=== PATIENT | female | born 1985 | race Caucasian/White ===

== ENCOUNTER 2017-08-19 20:51 | Emergency (ER) | payer SELFPAY ==
[2017-08-19 22:16] LABS: BASOPHILS 0.2 % (0-2); EOSINOPHILS 3.7 % (0-7); HEMATOCRIT 40.2 % (36.0-48.0); HEMOGLOBIN 13.3 g/dL (12-16); IMMATURE GRANULOCYTES 0.3 % (0-5); LYMPHOCYTES 19.9 % (15-50); MCH 30.2 pg (26.0-34.0); MCHC 33.1 g/dL (31.0-37.0); MCV 91.2 fL (80.0-100.0); MEAN PLATELET VOLUME 9.5 fL (7.4-10.4); MONOCYTES 6.1 % (2-11); NEUTROPHILS 69.8 % (40-80); PLATELET COUNT 370 10x3/uL (130-400); RBC 4.41 10x6/uL (4.00-5.40); RDW 13.9 % (11.5-14.5); WBC 15.5 10x3/uL (4.8-10.8)
[2017-08-19 22:18] LABS: HCG SERUM POSITIVE (NEGATIVE)
[2017-08-19 23:17] LABS: ALBUMIN 3.4 g/dL (3.4-5.0); ALKALINE PHOSPHATASE 102 U/L (46-116); ALT (SGPT) 42 U/L (10-68); BILIRUBIN - TOTAL 0.14 mg/dL (0.2-1.3); CALC OSMOLALITY 274 mosm/kg (275-300); CALCIUM 9.2 mg/dL (8.5-10.1); CARBON DIOXIDE 25.3 mmol/L (21.0-32.0); CHLORIDE - SERUM 102 mmol/L (98-107); CREATININE - SERUM 0.7 mg/dL (0.6-1.3); GLUCOSE 93 mg/dL (74-106); POTASSIUM - SERUM 3.7 mmol/L (3.5-5.1); PROTEIN - SERUM 7.4 g/dL (6.4-8.2); SODIUM 138 mmol/L (136-145); UREA NITROGEN 11 mg/dL (7-18); eGFR NON AFRICAN AMERICAN > 90 mL/min (90-120)
[2017-08-19 23:27] LABS: CREATINE KINASE 66 UL (21-215); MAGNESIUM - SERUM 2.1 mg/dL (1.8-2.4); PRO BNP 136 pg/mL (0-125)
== END 2017-08-20 00:43 | disposition home or self-care (01) ==
LOC: D.ER 20:51
PROVIDERS: Emergency Medicine
DX: O26.851 Spotting complicating pregnancy, first trimester (principal); Z3A.08 8 weeks gestation of pregnancy; J45.909 Unspecified asthma, uncomplicated; F17.200 Nicotine dependence, unspecified, uncomplicated

== ENCOUNTER 2017-10-11 19:23 | Emergency (ER) | payer SELFPAY ==
[2017-10-11 19:59] LABS: APPEARANCE CLEAR (CLEAR); BILIRUBIN NEGATIVE (NEGATIVE); COLOR YELLOW (YELLOW); GLUCOSE NEGATIVE (NEGATIVE); KETONE NEGATIVE (NEGATIVE); NITRITE NEGATIVE (NEGATIVE); PROTEIN NEGATIVE (NEGATIVE); SPECIFIC GRAVITY 1.015 (1.005-1.020); UROBILINOGEN NORMAL (NORMAL)
== END 2017-10-11 20:55 | disposition home or self-care (01) ==
LOC: D.ER 19:23
PROVIDERS: Family Medicine
DX: O26.892 Other specified pregnancy related conditions, second trimester (principal); Z3A.15 15 weeks gestation of pregnancy; R35.0 Frequency of micturition

== ENCOUNTER 2018-11-16 16:17 | Emergency (ER) | payer MEDICAID ==
[~2018-11-16] VITALS: Ht 160 cm; Wt 86.4 kg
[2018-11-16 16:21] VITALS: Ht 160 cm; Wt 86.4 kg
[2018-11-16] MEDS ORDERED: MINIPRESS1 MG PO ×2 (19:20→19:24)
[2018-11-16] MEDS ORDERED: EFFEXOR37.5 MG PO ×2 (19:21→19:24)
[2018-11-16] MEDS ORDERED: ATIVAN1 MG PO (19:24)
[2018-11-16 19:39] VITALS: BP 113/65
== END 2018-11-16 19:39 | disposition home or self-care (01) ==
LOC: D.ER 16:17
DX: F41.9 Anxiety disorder, unspecified (principal)

== ENCOUNTER 2020-02-01 23:19 | Emergency (ER) | payer SELFPAY ==
[~2020-02-01] VITALS: Ht 160 cm; Wt 88.6 kg
[~2020-02-01 23:19] MED LIST: ATIVAN1 MG PO; EFFEXOR37.5 MG PO; KEFLEX500 MG PO; MINIPRESS1 MG PO; PROPRANOLOL HCL20 MG PO
[2020-02-01 23:29] VITALS: BP 141/86; Ht 160 cm; Wt 88.6 kg
[2020-02-01 23:48] LABS: BILIRUBIN NEGATIVE (NEGATIVE); KETONE NEGATIVE (NEGATIVE); NITRITE NEGATIVE (NEGATIVE); UROBILINOGEN NORMAL (NORMAL)
[2020-02-02] MEDS ORDERED: ATIVAN1 MG PO (00:23)
[2020-02-02] MEDS ORDERED: DIFLUCAN150 MG PO (00:23)
== END 2020-02-02 03:01 | disposition home or self-care (01) ==
LOC: D.ER 23:19
PROVIDERS: Family Medicine
DX: B37.3 Candidiasis of vulva and vagina (principal); J45.909 Unspecified asthma, uncomplicated; R39.15 Urgency of urination

== ENCOUNTER 2020-02-08 23:23 | Emergency (ER) | payer SELFPAY ==
[~2020-02-08] VITALS: Ht 160 cm; Wt 88.6 kg
[~2020-02-08 23:23] MED LIST changes: +DIFLUCAN150 MG PO
[2020-02-08 23:32] VITALS: Ht 160 cm; Wt 88.6 kg
[2020-02-09 00:55] LABS: BACTERIA NONE SEEN /HPF (NONE SEEN); EPITHELIAL CELLS NSEEN /hpf (0-5); WHITE CELLS - URINE 0-5 HPF (0-4)
[2020-02-09 00:56] LABS: URIC ACID CRYSTALS 0-5 \\hpf (NONE SEEN)
[2020-02-09] MEDS ORDERED: TORADOL10 MG PO (01:01)
[2020-02-09] MEDS ORDERED: METHOCARBAMOL500 MG PO (01:01)
[2020-02-09 01:44] VITALS: BP 110/88
== END 2020-02-09 01:44 | disposition home or self-care (01) ==
LOC: D.ER 23:23
PROVIDERS: Family Medicine
DX: S30.0XXA Contusion of lower back and pelvis, initial encounter (principal); J45.909 Unspecified asthma, uncomplicated; M54.5 Low back pain; W10.9XXA Fall (on) (from) unspecified stairs and steps, initial encounter; Y93.9 Activity, unspecified; Y92.9 Unspecified place or not applicable

== ENCOUNTER 2020-08-02 21:09 | Emergency (ER) | payer OTHER ==
[~2020-08-02] VITALS: Ht 160 cm; Wt 92.5 kg
[~2020-08-02 21:09] MED LIST changes: +METHOCARBAMOL500 MG PO; +TORADOL10 MG PO; +VISTARIL50 MG PO
[2020-08-02 21:33] VITALS: Ht 160 cm; Wt 92.5 kg
[2020-08-02] MEDS ORDERED: MINIPRESS1 MG (21:35)
[2020-08-02 22:18] LABS: HCG URINE NEGATIVE (NEGATIVE)
[2020-08-02 22:19] LABS: BILIRUBIN NEGATIVE (NEGATIVE); KETONE NEGATIVE (NEGATIVE); NITRITE NEGATIVE (NEGATIVE); UROBILINOGEN NORMAL mg/dL (< 2)
[2020-08-02] MEDS ORDERED: ATIVAN1 MG PO (23:34)
[2020-08-02 23:53] VITALS: BP 123/85
== END 2020-08-02 23:54 | disposition home or self-care (01) ==
LOC: D.ER 21:09
PROVIDERS: Emergency Medicine
DX: B37.3 Candidiasis of vulva and vagina (principal); M54.5 Low back pain; J45.909 Unspecified asthma, uncomplicated

== ENCOUNTER 2020-10-06 16:08 | Emergency (ER) | payer OTHER ==
[~2020-10-06] VITALS: Ht 160 cm; Wt 90.7 kg
[~2020-10-06 16:08] MED LIST changes: +MINIPRESS1 MG
[2020-10-06 16:11] VITALS: Ht 160 cm; Wt 90.7 kg
[2020-10-06] MEDS ORDERED: FLUTICASONE PRO16 GM NASAL (16:58)
[2020-10-06] MEDS ORDERED: AUGMENTIN 875-11 TAB PO (16:58)
[2020-10-06 18:08] VITALS: BP 104/68
== END 2020-10-06 18:09 | disposition home or self-care (01) ==
LOC: D.ER 16:08
DX: J01.90 Acute sinusitis, unspecified (principal); F41.9 Anxiety disorder, unspecified; J45.909 Unspecified asthma, uncomplicated

== ENCOUNTER 2020-11-20 19:24 | Emergency (ER) | payer OTHER ==
[~2020-11-20] VITALS: Ht 160 cm; Wt 91.4 kg
[~2020-11-20 19:24] MED LIST changes: +AUGMENTIN 875-11 TAB PO; +FLUTICASONE PRO16 GM NASAL
[2020-11-20 19:29] VITALS: BP 117/82; Ht 160 cm; Wt 91.4 kg
[2020-11-21] MEDS ORDERED: ULTRAM50 MG PO (01:02)
== END 2020-11-21 01:03 | disposition home or self-care (01) ==
LOC: D.ER 19:24
DX: M25.562 Pain in left knee (principal); S80.02XA Contusion of left knee, initial encounter; J45.909 Unspecified asthma, uncomplicated; W19.XXXA Unspecified fall, initial encounter; Y93.9 Activity, unspecified; Y92.9 Unspecified place or not applicable

== ENCOUNTER 2020-11-27 17:55 | Emergency (ER) | payer OTHER ==
[~2020-11-27] VITALS: Ht 160 cm; Wt 92.7 kg
[~2020-11-27 17:55] MED LIST changes: +ULTRAM50 MG PO
[2020-11-27 18:08] VITALS: Ht 160 cm; Wt 92.7 kg
[2020-11-27 21:30] LABS: BILIRUBIN NEGATIVE (NEGATIVE); KETONE NEGATIVE mg/dL (< 1+); NITRITE NEGATIVE (NEGATIVE); UROBILINOGEN NORMAL mg/dL (< 2)
[2020-11-27 21:31] LABS: BASOPHILS 0.4 % (0-2); EOSINOPHILS 0.8 % (0-7); HEMATOCRIT 43.3 % (36.0-48.0); HEMOGLOBIN 14.3 g/dL (12-16); LYMPHOCYTES 17.7 % (15-50); MCH 28.9 pg (26.0-34.0); MCV 87.4 fL (80.0-100.0); MEAN PLATELET VOLUME 7.4 fL (7.4-10.4); MONOCYTES 5.5 % (2-11); NEUTROPHILS 75.6 % (40-80); PLATELET COUNT 401 10x3/uL (130-400); RBC 4.95 10x6/uL (4.00-5.40); RDW 13.2 % (11.5-14.5)
[2020-11-27 21:34] LABS: CALC OSMOLALITY 277 mosm/kg (275-300); CARBON DIOXIDE 30.1 mmol/L (21.0-32.0); CHLORIDE - SERUM 103 mmol/L (98-107); CREATININE - SERUM 0.8 mg/dL (0.6-1.3); GLUCOSE 120 mg/dL (74-106); POTASSIUM - SERUM 3.8 mmol/L (3.5-5.1); SODIUM 139 mmol/L (136-145); UREA NITROGEN 9 mg/dL (7-18); eGFR NON AFRICAN AMERICAN 87 mL/min (90-120)
[2020-11-27 21:37] LABS: HCG URINE NEGATIVE (NEGATIVE)
[2020-11-27 21:49] LABS: ALKALINE PHOSPHATASE 121 U/L (30-120); ALT (SGPT) 44 U/L (10-68); BILIRUBIN - TOTAL 0.39 mg/dL (0.2-1.3); MAGNESIUM - SERUM 2.2 mg/dL (1.8-2.4); THYROID STIMULATING HORMONE 0.78 uIU/mL (0.36-3.74)
[2020-11-27 22:18] VITALS: BP 109/56
== END 2020-11-27 22:18 | disposition home or self-care (01) ==
LOC: D.ER 17:55
PROVIDERS: Family Medicine
DX: F41.9 Anxiety disorder, unspecified (principal); R00.2 Palpitations; J45.909 Unspecified asthma, uncomplicated; Z72.0 Tobacco use